=== PATIENT | female | born 1965 | race Caucasian/White ===

== ENCOUNTER 2021-08-14 11:11 | Outpatient (CLI) | payer OTHER | END 2021-08-14 11:12 | disposition home or self-care (01) | LOC: BURRAD 11:11 | PROVIDERS: ATTEND Preventive Medicine Public Health & General Preventive Medicine | DX: A15.0 Tuberculosis of lung (principal); R91.8 Other nonspecific abnormal finding of lung field | CPT/HCPCS: 71046 ==